=== PATIENT | male | born 1975 | race Caucasian/White ===

== ENCOUNTER → 2017-05-02 | Outpatient (CLI) | payer BC | END | disposition home or self-care (01) | LOC: GMA 09:43 | PROVIDERS: ATTEND Physician Assistant | DX: R10.84 Generalized abdominal pain (principal) ==

== ENCOUNTER → 2017-05-02 | Outpatient (CLI) | payer BC ==
--- NOTE | 2017-05-02 10:27 | CT ---
EXAM DESCRIPTION: CT ABDOMEN AND PELVIS WITHOUT AND WITH CONTRAST CLINICAL HISTORY: GENERALIZED ABDOMINAL PAIN right-sided pain with suspected appendicitis or renal stone disease. COMPARISON: None Available. TECHNIQUE: CT of the abdomen and pelvis are performed prior to and during IV bolus administration of 100 mL of Isovue 300. Oral contrast media was not administered. This exam was performed according to our departmental dose-optimization program, which includes automated exposure control, adjustment of the mA and/or kV according to patient size and/or use of iterative reconstruction technique. FINDINGS: The lung bases are clear. Noncontrast imaging demonstrates a nonobstructing 3 x 5 mm calculus upper pole of the left kidney with no hydronephrosis either kidney are identified. The gallbladder is unremarkable. A small normal appendix is identified on noncontrast imaging. Contrast enhanced imaging demonstrates diffuse mild fatty replacement of the liver without focal mass. The gallbladder and biliary ductal system are normal and a small normal spleen is present. The pancreas normally enhances without cystic or solid mass and no adrenal enlargement is evident. The kidneys normally enhance without mass or cyst or obstruction. The aorta and vena cava and retroperitoneum are normal. Small and large bowel caliber is normal without ascites or inflammatory process. A small normal appendix in the central upper pelvis is noted. Significant diverticulosis of the colon or acute left lower quadrant inflammatory changes are not apparent. The bladder is incompletely distended. No pelvic fluid collections or inflammatory process is seen. Mild degenerative changes in the spine are present with reversal of normal lumbar lordosis centered at the L2 level. Anterior abdominal wall is unremarkable. IMPRESSION: 1. Small intrarenal nonobstructing upper pole left kidney stone without hydronephrosis and no evidence of abnormality on the right side. 2. Normal-appearing appendix with no evidence of right lower quadrant or left lower quadrant inflammatory process. 3. Diffuse fatty replacement of the liver without focal mass. 4. Unusual contour of the lumbar spine with reversal of normal lordosis centered at L2, presumably representing an anatomic variant. Electronically signed by: Fred Zarate MD 05/02/2017 10:25 AM CDT
== END | disposition home or self-care (01) ==
LOC: CT 09:06
PROVIDERS: ATTEND Physician Assistant
DX: R10.84 Generalized abdominal pain (principal)

== ENCOUNTER → 2017-06-01 | Outpatient (CLI) | payer BC | END | disposition home or self-care (01) | LOC: GMAM 10:19 | PROVIDERS: ATTEND Family Medicine | DX: Z12.5 Encounter for screening for malignant neoplasm of prostate (principal) ==

== ENCOUNTER 2017-08-28 18:39 | Emergency (ER) | payer BC ==
[2017-08-28 18:51] VITALS: TEMP 98; O2SAT 98
[2017-08-28] MEDS ORDERED: ONDANSETRON INJ 4 MG/2 ML VIAL IV ONE (18:54)
[2017-08-28] MEDS ORDERED: SODIUM CHLORIDE 0.9% (FLUSH) 10 ML SYG IV PRN (18:54)
[2017-08-28] MEDS ORDERED: KETOROLAC TROMETHAMINE INJ 30 MG/ML VIAL IV ONE (18:54)
[2017-08-28] MEDS ORDERED: SODIUM CHLORIDE 0.9% 1000ML 1,000 ML ONE (18:59)
[2017-08-28] MEDS ORDERED: SODIUM CHLORIDE 0.9% 1000ML 1,000 ML IVS ONE (19:00)
[2017-08-28] MEDS ORDERED: MORPHINE SULFATE INJ 10 MG/ML VIAL IV ONE (19:59)
--- NOTE | 2017-08-28 20:01 | ED.PDOC ---
History of Present Illness - General Chief Complaint: Problem Stated Complaint: flank pain Time Seen by Provider: 08/28/17 18:54 Source: patient, RN notes reviewed, Vital Signs reviewed Exam Limitations: no limitations - History of Present Illness Timing/Duration: just prior to arrival Quality: moderate, sharpness, steady, stabbing Onset Location: left flank Radiation: LLQ Activites at Onset: none Prior abdominal problems: similar symptoms - right sided kidneystone in april, ct abd also showed pt has left kidney stone 5mm Improving Factors: nothing Worsening Factors: nothing Associated Symptoms: urinary frequency Allergies/Adverse Reactions: Allergies NO KNOWN ALLERGY Allergy (Verified 08/28/17 18:50) Home Medications: Ambulatory Orders Acetamin W/Cod #3 Tab [Tylenol w/CODEINE #3] 1 ea PO Q4HR PRN #25 tab 08/28/17 Ketorolac Tromethamine [Toradol Tabs] 10 mg PO Q6HR PRN #20 tab 08/28/17 Promethazine Tab [Phenergan Tablet] 25 mg PO .Q4H PRN #10 tab 08/28/17 Tamsulosin [Flomax] 0.4 mg PO QDPC PRN #10 cap 08/28/17 Review of Systems - Review of Systems Constitutional: States: no symptoms reported EENTM: States: no symptoms reported Respiratory: States: no symptoms reported Cardiology: States: no symptoms reported Gastrointestinal/Abdominal: States: nausea Genitourinary: States: frequency, hematuria. Denies: pain Musculoskeletal: States: no symptoms reported Skin: States: no symptoms reported Neurological: States: no symptoms reported Endocrine: States: no symptoms reported Hematologic/Lymphatic: States: no symptoms reported Past Medical History (General) - Patient Medical History Hx Hypertension: Yes Surgical History: other - Vaccination History Hx Influenza Vaccination: No Hx Pneumococcal Vaccination: No - Social History Hx Alcohol Use: Yes - occasional Hx Substance Use: No Hx Substance Use Treatment: No Hx Depression: No Family Medical History - Family History Mother Family History: Unknown Physical Exam - Physical Exam General Appearance: Alert, Obvious distress Eyes, Ears, Nose, Throat Exam: PERRL/EOMI, normal ENT inspection Neck: non-tender, full range of motion, supple Cardiovascular/Respiratory: regular rate, rhythm, no M/R/G Gastrointestinal/Abdominal: non tender, soft Back Exam: normal inspection, CVA tenderness (L) Extremity: normal range of motion, non-tender Neurologic: no motor/sensory deficits, alert Skin Exam: normal color, warm/dry Lymphatic: no adenopathy Progress - Progress Progress: 08/28/17 20:02 patient has had improvement with pain after medications, resting in bed, non toxic. 08/28/17 18:54 IV Care:Saline Lock per Protoc QSHIFT Sodium Chloride 0.9% (Flush) [Saline Flush Syringe] 10 ml IV PRN PRN 08/28/17 19:04 URINALYSIS Stat Laboratory Results WBC 9.4 K/mm3 (4.8-10.8) 08/28/17 18:54 RBC 4.88 M/mm3 (4.70-6.10) 08/28/17 18:54 Hgb 14.5 gm/dL (14.0-18.0) 08/28/17 18:54 Hct 43.1 % (42.0-52.0) 08/28/17 18:54 MCV 88.4 fl (80.0-94.0) 08/28/17 18:54 MCH 29.7 pg (27.0-31.0) 08/28/17 18:54 MCHC 33.6 g/dL (33.0-37.0) 08/28/17 18:54 RDW 13.7 % (11.5-14.5) 08/28/17 18:54 Plt Count 263 K/mm3 (130-400) 08/28/17 18:54 MPV 8.3 fl (7.40-10.4) 08/28/17 18:54 Absolute Neuts (auto) 7.50 K/uL (1.8-6.8) H 08/28/17 18:54 Absolute Lymphs (auto) 1.20 K/uL (1.0-3.4) 08/28/17 18:54 Absolute Monos (auto) 0.60 K/uL (0.2-0.8) 08/28/17 18:54 Absolute Eos (auto) 0.00 K/uL (0.0-0.4) 08/28/17 18:54 Absolute Basos (auto) 0.00 K/uL (0.0-0.1) 08/28/17 18:54 Neutrophils % 79.9 % (42.0-78.0) H 08/28/17 18:54 Lymphocytes % 13.2 % (20.0-50.0) L 08/28/17 18:54 Monocytes % 6.1 % (2.0-9.0) 08/28/17 18:54 Eosinophils % 0.3 % (1.0-5.0) L 08/28/17 18:54 Basophils % 0.5 % (0.0-2.0) 08/28/17 18:54 Sodium 137 mmol/L (135-145) 08/28/17 18:54 Potassium 3.5 mmol/L (3.6-5.0) L 08/28/17 18:54 Chloride 103 mmol/L (101-111) 08/28/17 18:54 Carbon Dioxide 25 mmol/L (21-31) 08/28/17 18:54 Anion Gap 12.5 (12-18) 08/28/17 18:54 BUN 17 mg/dL (7-18) 08/28/17 18:54 Creatinine 0.93 mg/dL (0.6-1.3) 08/28/17 18:54 BUN/Creatinine Ratio 18.3 (10-20) 08/28/17 18:54 Random Glucose 110 mg/dL (70-105) H 08/28/17 18:54 Serum Osmolality 276.0 mOsm/L (275-295) 08/28/17 18:54 Calcium 8.9 mg/dL (8.4-10.2) 08/28/17 18:54 Total Bilirubin 0.6 mg/dL (0.2-1.0) 08/28/17 18:54 Direct Bilirubin 0.1 mg/dL (0-0.2) 08/28/17 18:54 Indirect Bilirubin 0.5 mg/dL (0.2-0.8) 08/28/17 18:54 AST 27 IU/L (10-42) 08/28/17 18:54 ALT 29 IU/L (10-60) 08/28/17 18:54 Alkaline Phosphatase 51 IU/L (42-121) 08/28/17 18:54 Serum Total Protein 7.3 gm/dL (6.4-8.2) 08/28/17 18:54 Albumin 4.3 g/dl (3.2-5.5) 08/28/17 18:54 08/28/17 20:47 Abnormal Lab Results 08/28/17 08/28/17 08/28/17 18:54 18:54 19:04 Absolute Neuts (auto) 7.50 H Neutrophils % 79.9 H Lymphocytes % 13.2 L Eosinophils % 0.3 L Potassium 3.5 L Random Glucose 110 H Urine Blood Moderate H Urine RBC 10-20 H Departure - Departure Clinical Impression: Urolithiasis Qualifiers: Urinary calculus location: ureter Qualified Code(s): N20.1 - Calculus of ureter Time of Disposition: 20:50 Disposition: Discharge to Home or Self Care Condition: Excellent Departure Forms: ED Discharge - Pt. Copy, Patient Portal Self Enrollment Diet: resume usual diet Activity: increase activity as tolerated Referrals: Fred Virk MD [Primary Care Provider] - 1-2 Weeks PHILL KENNEDY MD [Consulting Staff] - 1-2 Weeks Prescriptions: Acetamin W/Cod #3 Tab [Tylenol w/CODEINE #3] 1 ea PO Q4HR PRN #25 tab PRN Reason: Pain Ketorolac Tromethamine [Toradol Tabs] 10 mg PO Q6HR PRN #20 tab PRN Reason: Pain Promethazine Tab [Phenergan Tablet] 25 mg PO .Q4H PRN #10 tab PRN Reason: Nausea Tamsulosin [Flomax] 0.4 mg PO QDPC PRN #10 cap PRN Reason: Pain Home Medications: Ambulatory Orders Acetamin W/Cod #3 Tab [Tylenol w/CODEINE #3] 1 ea PO Q4HR PRN #25 tab 08/28/17 Ketorolac Tromethamine [Toradol Tabs] 10 mg PO Q6HR PRN #20 tab 08/28/17 Promethazine Tab [Phenergan Tablet] 25 mg PO .Q4H PRN #10 tab 08/28/17 Tamsulosin [Flomax] 0.4 mg PO QDPC PRN #10 cap 08/28/17
[2017-08-28] MEDS ORDERED: HYDROCOD/APAP 5/325 (ER DISP) #3 TAB PO ONE (20:18)
[2017-08-28] MEDS ORDERED: PROMETHAZINE TAB (ER DISP) 25 MG TAB PO ONE (20:19)
[2017-08-28 21:27] VITALS: BP 142/88
== END 2017-08-28 21:26 | disposition home or self-care (01) ==
LOC: ER 18:39
DX: N20.1 Calculus of ureter (principal); I10 Essential (primary) hypertension
CPT/HCPCS: 80048; 80076; 81001; 85025; J1885; J2270; J2405; J7030; Q0169

== ENCOUNTER → 2017-10-18 | Outpatient (CLI) | payer BC ==
--- NOTE | 2017-10-18 16:12 | RAD ---
EXAM DESCRIPTION: KUB CLINICAL HISTORY: URETERAL CALCULUS COMPARISON: CT of May 02, 2017 TECHNIQUE: Frontal views of abdomen and pelvis FINDINGS: Small calcified stone previously seen in the left kidney is not evident in this study, possibly due to interval distal migration (now a 4 mm opacity or calcific density identified in left pelvis). No new calcific urolithiasis on either side. Nonobstructive bowel gas pattern. No pneumatosis nor intraperitoneal free air. Bony structures in lumbar spine and in pelvis appear intact without injury. Visualized portions of the lung bases are grossly clear. IMPRESSION: Question interval distal migration of subcentimeter calcified stone previously seen in the left kidney, now corresponding to the calcification or opacity seen in the left pelvis Electronically signed by: Nolan Barraza MD 10/18/2017 4:11 PM SOLUTION STRATEGIST
== END ==
LOC: RAD 15:22
PROVIDERS: ATTEND Urology
DX: N20.1 Calculus of ureter (principal)

== ENCOUNTER → 2018-11-15 | Outpatient (CLI) | payer BC | LOC: GMAM 11:56 | PROVIDERS: ATTEND Family Medicine | DX: Z12.5 Encounter for screening for malignant neoplasm of prostate (principal) ==